=== PATIENT | male | born 1995 | race Two or more races ===

== ENCOUNTER 2023-04-24 14:46 | Emergency (ER) | payer OTHER ==
[~2023-04-24] VITALS: Ht 172.7 cm; Wt 71.0 kg
[2023-04-24 16:40] VITALS: BP 128/82
== END 2023-04-24 18:15 | disposition home or self-care (01) ==
LOC: ER 14:46
DX: S40.022A Contusion of left upper arm, initial encounter (principal); S40.021A Contusion of right upper arm, initial encounter; W11.XXXA Fall on and from ladder, initial encounter; Y93.89 Activity, other specified; Y92.89 Other specified places as the place of occurrence of the external cause; Y99.8 Other external cause status
CPT/HCPCS: 70450